=== PATIENT | male | born 1940 | race Caucasian/White ===

== ENCOUNTER 2019-12-15 17:10 | Inpatient (IN) | payer OTHER, MEDICARE ==
[~2019-12-15] VITALS: Ht 182.9 cm; Wt 81.6 kg
[~2019-12-15 17:10] MED LIST: ACIDOPHILUS CA1 EAC1 PO; ADULT LOW DOSE81 MG PO; AMPICILLIN SOD500 MG PO; ASA81BEC PO; ASPIRIN; ASPIRIN EC81 M1; ASPIRIN81 M2 PO; AZITHROMYCIN 2250 MG PO; BAYER CHEWABLE81 MG PO; BENEFIBER1 EAC1 PO; BENICAR20 MG PO; BENICAR40 MG; BENICAR40 MG PO; CALCIUM CITRAT250 MG PO; CALCIUM500 MG PO; CARAFATE 1 GM TA1 G1 PO; CARAFATE1 GM/10 ML PO; CEFDINIR300 MG PO; CIPRO500 MG/5 M PO; CITRATE OF MAG296 M1 PO; CLONIDINE0.1; COLACE 100 MG100 MG PO; COLACE100 MG PO; DEXILANT60 MG PO; DULCOLAX STOOL100 M1 PO; FAMOTIDINE PO; FLEET ENEMA133 ML; FOLIC ACID 40400 MC1 PO; IMDUR 30 MG TAB30 M1 PO; IRON325 PO; IRON55 MG PO; KEFLEX500 M1 PO; LOPRESSOR25 PO; LOVASTAT20 PO; LOVASTATIN 20 M20 MG PO; MILK OF MA400 MG/5 M PO; MIRALAX17 G1 PO; MIRALAX17 GM PO; NITRO-DUR1 EAC1 TRANSDERM; NITROGLYCERIN0.4 MG SL; NITROSTAT0.4 M1 SUBLING; NORCO 5-325 TA1 EACH PO; NORVASC 2.5 MG2.5 M1; NORVASC 5 MG TAB5 MG; NYSTATIN1 EAC6; PANTOPRAZOLE SO40 M1 PO; PLAVIX 75 MG TA75 M1 PO; PLAVIX 75 MG TA75 MG PO; PRAVACHOL; PRAVACHOL40 MG PO; PREDNISONE 10 M10 MG PO; PREDNISONE 20 M20 MG PO; PREVACID30 MG PO; PRILOSEC 20 MG20 MG PO; PRILOSEC OTC20 MG PO; PROPAFENONE 15150 MG PO; RITALIN10 MG; RITALIN10 MG PO; SUPER THERAVIT1 EACH PO; TOPROL XL25 MG PO; TOPROL XL50 MG PO; TYLENOL325 MG PO; VITAMIN B-12500 MCG PO; VITAMIN B12 1000MCG PO; VITAMIN C500 MG PO; ZOCOR40 MG PO
[2019-12-15 17:14] VITALS: BP 136/90
[2019-12-15 17:39] LABS: ABSOLUTE NEUTROPHILS 4.4 thou/uL (1.4-8.2); BASOPHILS 0.9 % (0.0-2.0); EOSINOPHILS 0.8 % (0.0-3.0); HEMATOCRIT 31.9 % (42.0-52.0); HEMOGLOBIN 10.8 gm/dL (14.0-18.0); LYMPHOCYTES 10.8 % (24.0-44.0); MCH 31.4 pg (26.0-34.0); MCHC 33.8 g/dL (28.0-37.0); MCV 93.1 fL (80.0-100.0); MONOCYTES 10.4 % (1.0-8.0); PLATELET COUNT 273 thou/uL (150-400); POLYS 77.1 % (36.0-66.0); RBC 3.43 mil/uL (4.50-6.00); RDW 14.3 % (10.5-14.5); WBC 5.7 thou/uL (4.0-11.0)
[2019-12-15 17:45] LABS: CALCIUM 8.7 mg/dL (8.5-10.1); CREATININE 0.7 mg/dL (0.7-1.3); POTASSIUM 3.6 mmol/L (3.5-5.1)
[2019-12-15] MEDS ORDERED: LOVASTATIN 20 M20 MG PO (18:26)
--- NOTE | 2019-12-15 18:32 | NUR ---
Per paperwork from [facility], "patient states that if his does not kill him, he will kill her. Pt reports increased anxiety and depression. Pt exhibits combative behaviors towards staff and is refusing cares"
[2019-12-15 19:31] VITALS: BP 136/86
--- NOTE | 2019-12-15 20:00 | NUR ---
REPORT GIVEN TO CCU NURSE. EKG DONE IN ER SENT WITH JEROME EMT DURING TRANSPORT TO FLOOR. BELONGINGS SENT WITH PATIENT.
[2019-12-15] MEDS ORDERED: COLACE100 MG PO (20:10)
[2019-12-15] MEDS ORDERED: NITROGLYCERIN0.4 MG SUBLING (20:14)
[2019-12-15] MEDS ORDERED: MIRALAX119 GM PO (20:15)
[2019-12-15 20:45] VITALS: BP 150/94
[2019-12-16 00:45] VITALS: BP 131/77
--- NOTE | 2019-12-16 03:00 | NUR ---
PT NEW ADMIT YESTERDAY FROM ER. ALERT AND ORIENTED. ST ON THE MONITOR. VSS. CONSENTS SIGNED. ORIENTED TO ROOM AND CALL LIGHT. PT HAS SOME REDNESS TO HIS BOTTOM, BRUISE TO HIS LLQ THAT HE STATE IT IS FROM SHOTS. ALL ADMISSION ASSESSMENTS COMPLETE AND DOCUMENTED. PT DENIES PAIN. PT ALSO REPORTS HE DOES NOT FEEL SAFE RETURNING HOME BECAUSE OF HIS AND WOULD PREFER HIS NOT TO BE UPDATE ABOUT HIS CONDITION. PT HAS ELEVATED TROPONIN, CARDIO CONSULTED BUT NO PAIN. HR REMAINED TACHY THROUGH THE NIGHT (100-116). NO FURTHER CONCERNS AT THIS TIME. WILL CONTINUE TO FOLLOW POC.
[2019-12-16 04:45] VITALS: BP 156/101
[2019-12-16 05:28] LABS: CALCIUM 8.3 mg/dL (8.5-10.1); CREATININE 0.7 mg/dL (0.7-1.3); POTASSIUM 3.1 mmol/L (3.5-5.1); TROPONIN-I 0.44 ng/mL (<0.06)
[2019-12-16 06:45] LABS: HEMATOCRIT 31.4 % (42.0-52.0); HEMOGLOBIN 10.6 gm/dL (14.0-18.0); MCH 31.8 pg (26.0-34.0); MCHC 33.8 g/dL (28.0-37.0); MCV 94.2 fL (80.0-100.0); RBC 3.33 mil/uL (4.50-6.00); RDW 14.7 % (10.5-14.5); WBC 7.5 thou/uL (4.0-11.0)
[2019-12-16 07:59] LABS: DIRECT BILIRUBIN 0.4 mg/dL (<0.1-0.2); TOTAL BILIRUBIN 0.7 mg/dL (<0.1-1.0); TOTAL PROTEIN 5.6 g/dL (6.4-8.2)
[2019-12-16 08:50] VITALS: BP 135/85
--- NOTE | 2019-12-16 11:12 | EKG ---
[facility] [place] [address] ELECTROCARDIOGRAM REPORT Name: RUBENS SANTA Room #: 350-P ADM IN M.R.#: [id number] Admission: 12/15/19 Attend Phys: Joshua Barrios MD Discharge: Date of : 36 Report #: [id number] THIS REPORT FOR: cc: Vinod Barton MD, David L. 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: [facility] : 1940 Requested By: Althea Marc Order Number: [id number] MD: Anibal Grant Measurements Intervals Summers Rate: 109 P: -11 MO: 150 QRS: 8 QRSD: 94 T: 198 QT: 314 QTc: 423 Interpretive Statements Sinus tachycardia with occasional premature ventricular complexes Repol abnrm suggests ischemia, lateral leads Baseline wander in lead(s) II,III,aVF Compared to ECG 10/30/2004 07:45:23 Premature ventricular complexes are no longer present Nonspecific ST segment abnormality is present Electronically Signed On 12-16-2019 11:11:13 CDT by Anibal Grant [email or web address] <ELECTRONICALLY SIGNED> By: Anibal Grant MD, [facility] 12/16/19 1111 1758 1758 Anibal Grant MD, [facility] /EPI
--- NOTE | 2019-12-16 11:16 | NUR ---
PT TRANSFERRED FRON 2-N TO 3 W ROOM 350 PT ALERT XS 4 STATES NO PAIN BUT IS TIRED. COVID 19 TEST DONE AND TAKEN TO LAB. UA TO BE OBTAINED. V.S TAKEN IN CHART, IV MED FROM ORDER TIME 0715 STARTED AT THIS TIME. WILL GIVE 08:00 AND 09:00 IV ABTS LATE BUT DR MAJOR AWARE PT WAS TRANSFERRED IV AND PO MEDS NOT GIVEN ON 2-N. TELE APPLIED AND STRIP IN CHART. PT IS PLEASANT AND COOPERATIVE WITH CARE.
[2019-12-16 11:23] VITALS: BP 128/60
--- NOTE | 2019-12-16 12:31 | NUR ---
PT IN ROOM EATING LUNCH. PT STATES NO PAIN OR RESP DISTRESS. DOES NOT WANT THIS FACILITY TO GIVE HIS CAR KEYS OR BILLFOLD TO HIS .
[2019-12-16 16:31] VITALS: BP 121/78
--- NOTE | 2019-12-16 17:37 | NUR ---
AT THIS TIME PT SITTING UP IN BED EATING DINNER AND WATCHING TV. PUT IN WOUND CARE CONSULT FOR RIGHT LE WOUND CARE / CONSULT. PT HAS KAREN LE'S WITH 1-2 EDEMA. FEET ELEVATED. PT STATES NO PAIN OR RESP DISTRESS AT THIS TIME.
[2019-12-16 19:58] VITALS: BP 106/70
--- NOTE | 2019-12-16 20:09 | NUR ---
UPON INITIAL ASSESSMENT PATIENT WAS AOX4. PATIENT WAS IN AN ANXIOUS STATE REGARDING A BUTTOCKS SORE THAT HAS NOT BEEN ADDRESSED. UPON ASSESSMENT THIS RN DISCOVERED A BLANCHABLE SORE AT THE SACRAL SITE. PT STATED THAT THIS SORE ORIGINATED PRIOR TO ADMISSION AT THIS HOSPITAL. THIS RN WILL WORK TO APPROPERIATELY ADDRESS THIS ISSUE. PT'S ABDOMAN WAS SOFT AND FLAT BUT PT STATED THAT IT FELT A BIT MORE BLOATED. PER PT, LAST BM WAS PASSED ON 12/13. PT'S LUNGS WERE DIMINISHED AT THE LOWER R LOBE AND HIS RADIAL PULSE WAS ALSO DIMINISHED SPECIFICALLY AT THE R WRIST. PT IS EDEMETOUS TO BLE, SCD'S ARE PLACE DON L LEG ONLY D/T AN OPEN ULCER ON THE R DAILEY. PT DOES COMPLAIN OF BUTTOCKS PX AT THIS TIME. WILL ADDRESS THIS WELL WITH MEDICATION. PATIENT IS RESPONSIVE, ABLE TO RECOLLECT HISTORY, ABLE TO FOLLOW COMMANDS, AND MAKE COMPLETE ARTICULATED SENTENCES. WILL CONTINUE TO MONITOR STATUS AND UPDATE NECESSARY.
[2019-12-17 05:34] LABS: HEMATOCRIT 29.3 % (42.0-52.0); HEMOGLOBIN 9.9 gm/dL (14.0-18.0); MCHC 33.8 g/dL (28.0-37.0); MCV 94.6 fL (80.0-100.0); RBC 3.1 mil/uL (4.50-6.00)
[2019-12-17 08:35] VITALS: BP 130/87
--- NOTE | 2019-12-17 12:02 | NUR ---
WOUND CONSULT; LIMITED ASSSESSMENT DUE TO COVID-19 POC, ASSESSED FROM PICTURES ONLY. THE WOUND TO THE LEFT HIP WAS PINK AND ABRASION-LIKE. THE GENERALIZED BUTTOCK AREAS; LOOK LIKE AN AREA OF S/S CONSISTANT WITH RESOLVING CONTACT DERMITIS AND NOT PRESSURE. THE RIGHT LE HAS S/S SUGGESTIVE OF PRESSURE LIKLEY MECHANICAL. ALL THE WOUND BEDS LOOK PALE PINK. RECOMMENDATIONS; 1-ZGUARD TO BUTTOCKS DAILY 2-A FOAM DRESSING TO THE LEFT HIP 3-PACK THE RLE WOUND WITH AQUACEL AG, COVER WITH A BOARDER FOAM, CHANGE M/W/F PRN DISCUSSED WITH ASHLEE
--- NOTE | 2019-12-17 15:03 | NUR ---
INITIAL ASSESSMENT: SW reviewed chart and spoke with nursing and attending physician. Pt in Enhanced Isolation to r/o COVID-19. Pt was at [facility], transferred to [facility] to the [facility] unit. Pt was evaluated in the ER and then admitted due to elevated troponin. Pt's COVID test is negative. Pt to transfer off of 3W. SW discussed with psych. Pt has been accepted to [facility] when medically stable. SW spoke with pt via phone. Introduced role of SW. Pt states that his has not been taking care of him and he wants her "to be investigated." Pt states that he would like to go to rehab and then back to his home. He does not want his involved in his care. Pt states that pt's nephew, Severiano Montalvo, is his contact. SW reviewed [facility] notes. Pt's is his DPOA. Pt has been to [facility] from 11/21-12/09. Pt's PCP is Dr. Vinod Barton in [place]. Pt with hx of Rachel in March of 2003. Pt has been in a w/c since that time. Pt states he has not used any HH. Pt has an open case with [facility]. Megan ([phone]) is the assigned caser shoe parts. SW spoke with Megan via phone to provide update. Megan states she has spoken with pt's family. Per Megan, pt has called the police on his . Family states that pt's takes care of him, as best as she cans, and if pt allows. Pt was unsafe to return home when [facility] ([place], [place]) was ready to discharge pt. Pt refused therapy at the facility due to being fixated on his bowel function. Pt's is involved in his care, but is unable to provide hands on care. [facility] has discussed exterminator termite care placement and process for Medicaid application. Plan is for pt to d/c to [facility] when medically stable. BERNY is following to assist as needed with discharge planning.
[2019-12-17] MEDS ORDERED: TYLENOL325 MG PO (16:10)
[2019-12-17] MEDS ORDERED: CARVEDILOL3.125 MG PO (16:10)
[2019-12-17 16:16] LABS: URINE BLOOD NEGATIVE (Negative); URINE CLARITY CLEAR; URINE COLOR YELLOW; URINE GLUCOSE-RANDOM* NEGATIVE (Negative); URINE KETONES NEGATIVE (Negative); URINE LEUKOCYTES NEGATIVE (Negative); URINE NITRITE NEGATIVE (Negative); URINE PROTEIN (DIPSTICK) NEGATIVE (Negative); URINE SPECIFIC GRAVITY >= 1.030 (1.005-1.035); URINE UROBILINOGEN 0.2 E.U./dl (0.2-1.0)
[2019-12-17 16:19] LABS: ICTOTEST (BILI CONFIRMATORY) Negative (Negative); URINE BILIRUBIN NEGATIVE (Negative)
[2019-12-17 16:26] VITALS: BP 123/78
--- NOTE | 2019-12-17 17:17 | NUR ---
PATIENT A/O X4. COVID NEGATIVE. D TO 518B NOW.
--- NOTE | 2019-12-18 07:42 | NUR ---
ORDERS FOR EVAL AND TREAT RECIEVED ON ACUTE BUT WAS PLACED ON HOLD PENDING COVID-19 RESULTS WHICH WERE NEGATIVE AND Pt HAS NOW TRANSFERRED TO [facility]
== END 2019-12-17 17:19 | DRG 947 ==
LOC: ER 17:10 → 3W 18:52 → EROBS 18:52 → SICU 20:30 → 2N 20:54 → 3W 12-16 10:22 → SBH 12-17 17:01 → 3W 12-17 17:18
PROVIDERS: Nurse Practitioner Family; ADMIT Hospitalist
DX: R79.89 Other specified abnormal findings of blood chemistry (principal); E43 Unspecified severe protein-calorie malnutrition; G61.0 Guillain-Barre syndrome; G82.20 Paraplegia, unspecified; F23 Brief psychotic disorder; R00.0 Tachycardia, unspecified; K59.00 Constipation, unspecified; Z20.818 Contact with and (suspected) exposure to other bacterial communicable diseases; I10 Essential (primary) hypertension; K21.9 Gastro-esophageal reflux disease without esophagitis; G47.419 Narcolepsy without cataplexy; G62.9 Polyneuropathy, unspecified; M35.3 Polymyalgia rheumatica; F32.9 Major depressive disorder, single episode, unspecified; Z79.82 Long term (current) use of aspirin; Z95.5 Presence of coronary angioplasty implant and graft; Z79.899 Other long term (current) drug therapy; Z88.8 Allergy status to other drugs, medicaments and biological substances
CPT/HCPCS: 10081; 10879

== ENCOUNTER 2019-12-17 17:39 | Inpatient (IN) | payer OTHER, MEDICARE ==
[~2019-12-17] VITALS: Ht 167.6 cm; Wt 71.1 kg
[~2019-12-17 17:39] MED LIST changes: +CARVEDILOL3.125 MG PO; +MIRALAX119 GM PO; +NITROGLYCERIN0.4 MG SUBLING
--- NOTE | 2019-12-17 18:24 | NUR ---
PT ARRIVED FROM 3RD FLOOR. PT STATED HE WAS AT [facility], THEN TIA [facility] IN INDEPENDANCE BACK TO [facility] AND THEN HERE. PT STATED THAT HE FELL AT HOME AND HIS JYOTI LEFT HIM ALONE AND HE CALLED HIS STEP-DAUGHTER DOMINGO CAME OVER AND SAFED HIS LIFE. ASKED PT HOW LONG HE WAS LAYING ON THE FLOOR, HE STATED FOR AWHILE. PT WAS UPSET ABOUT THE STAFF TAKING HIS PHONE. HE SAID JUST TRY TO TAKE MY PHONE AND YOU WILL HAVE TO PRY IT OUT OF HIS HANDS. PT ALSO STATED THAT HE IS UNABLE TO GET OUT OF THE BED UNLESS HE HAD HELP AND HE WASN'T WELL ENOUGH TO GET UP. PT STATED HE HAD THE FLU SHOT AT ONE TIME AND HE ENDED UP ON A GERNY AND NEVER WAS ABLE TO WALK AGAIN. PT STATED THE DID A SPINAL TAP AND HE HAD PROTIEN IN THE SPINAL FLUID AND DIAGNOSED WITH GILLIUM-BARRE. 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 HE DENIES BEING DEPRESSED OR SI. PT STATED HE JUST WANTS HIS KICKED OUT AND HIRE A SECURITY PERSON TO WATCH HIS HOUSE, PT UNDERSTANDS THAT THIS IS NOT GOING TO HAPPEN. PT ALSO HAS WOUNDS TO COCCYX AND RT LEG. PT STATED HE WOULD LIKE HIS NEPHEW BILL TO BE HIS DPOA AND HE STATED HE WOULD LEAVE EVERYTHING TO HIM. HE DID SAY HIS SON A YEAR AGO. PT HAS A DAUGHTER THAT HE IS ESTRANGED FROM AND DIDN'T KNOW WHY. 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 PT STATED HE IS ALSO FILLED UP, MEANING CONSTIPATED AND HE HASN'T HAD BM FOR 2 DAYS. PT STATED YOU CAN BRING A HORSE TO WATER, BUT CAN'T MAKE HIM DRINK. PT HAS WATER AT BEDSIDE DRINKING WITHOUT ANY ISSUES. PT HAS A LEATHER LAP MEENAKSHI THAT HAS PERSONAL INFO IN IT. PT ALLOWED THIS PROBATION OFFICER TO TAKE HIS CELL PHONE. PT PICKED OUT A FEW NAMES HE WANTED AND THIS PROBATION OFFICER ASSISTED PT BY WRITING DOWN THE NAMES AND NUMBERS ON THE PAPER.
[2019-12-17 18:34] VITALS: BP 123/85
[2019-12-17 19:50] VITALS: BP 123/85
--- NOTE | 2019-12-18 01:01 | NUR ---
Assumed care on 12/17/19 @ 1900. In bed, eyes open, responded to voiced greeting with pleasant affect. noted to be holding a tube of incontinent cream, and asked to have it applied. Incontinent of bladder, cream applied and voiced that he was pleased to have it. denies SI, HI, AH, VH. Denies that he ever said or intended to hurt his . A&O x 3. Cooperated with assessment and compliant with medication. Asked to have the light left on, even at bedtime, stated that he would sleep with the light on in case he woke up and wanted to read a magazine. Bed in low position, 3 rails up, bed alarm set, will continue to monitor q 12 for patient safety.
[2019-12-18 07:46] VITALS: BP 165/82
--- NOTE | 2019-12-18 10:40 | NUR ---
BERNY reviewed pt's chart and saw that there is DHSS involvment. BERNY contacted pt's DHSS worker Megan at [phone] who gave a background hx on pt and that fact that he is very paranoid about his . However, all of his statements have been unfounded. Megan said pt went to rehab and refused services. It is her recommendation that pt has placement because he refuses to go home with his , but is unsafe for him to live alone. BERNY contacted pt's Keyana Cooper at [phone]. She is concerned about payment for pt's stay in LTC should that be the choice. BERNY discussed getting [employer] involved to apply for Medicaid. Keyana agreed. She also asked about obtaining pt's info to pay an ambulance bill he accrued a week ago. BERNY advised that wait until pt is discharged because of the process of having to get security involved. She agreed.
--- NOTE | 2019-12-18 11:20 | NUR ---
WOUND CONSULT; A WOUND WAS IDENTIFIED TO THE RIGHT LEG. THE WOUND IS LIKLEY A MECHANICAL PRESSURE ETIOLOGY WHICH MEASURES 2.2 X 1.0 X 0.9. THE PATIENT HAS HEALED AREAS TO THE BUTTOCKS AND LEFT HIP. RECOMMENDATIONS; 1-AQUACEL AG TO RIGHT LE, COVER WITH A BORDER FOAM, SECUR WITH A TUBIGIP. 2-ZGUARD TO BUTTOCKS AND LEFT HIP. RN PRESENT
--- NOTE | 2019-12-18 12:32 | NUR ---
Lying supine in bed. Alert and orientated X3. States he does not know why he is on psych unit. Resistant to getting out of bed and participating in groups. Also has multiple problems with wheelchair and unit. Denies SI/HI. Breath sounds clear. Reg HR auscultated. Color pale pink with brisk capillary refill and palpable peripheral pulses. +2-+3 edema in lower extremities, L>R. Yellow urine per urinal. States he feels constipated/impacted and that it has been several days since he has had a BM. Active bowel sounds over soft, rounded abdomen. Reddened area to buttocks, cleaned and Zpaste applied. Drsg to lower extremity dry and intact. Paper tape/cotton ball removed from R antecubital space, skin tear approximately 1 cm, barrier drsg applied. Demanding to talk to psychiatrist. Refusing to get out of bed after being placed in bed for wound consult. called for update. States we can tell her that he is here, but no additional information. Dr. Pedro talked with pt. briefly, Dr. Conley states she will talk to later. called and informed of above. 1230 In bed eating lunch without s/o distress. States he will get up for dinner now that we have smaller WC with cushion.
[2019-12-18 19:20] VITALS: BP 86/56
[2019-12-18 20:01] VITALS: BP 86/56
--- NOTE | 2019-12-19 03:50 | NUR ---
Care transfered 12-18-19 at 1915; 1919 pt sittin in w/c assisted pt into bed per pt request with offgoing RN, position pt comfortable in bed. PT AAoX3, skin w/d. Upon auscultation Lungs clear RR even and non-labored on RA; HT S1/S2 RR; ABD soft, rounded, active WNL. Radial pulse equal and strong, pedal pulse right strong, left weak. +2-+3 pitting edema LE L>R. Rt AC dressing clean dry and intact; RLE dressing clean, dry and intact. Pt denies any pain and SI/HI/AVH. Pt denies any further concerns. 2032 Pt sitting in bed with eyes open, HS snack provided, and medication admin. Pt refused colace r/t two large BM earlier today. Reposition pt in bed and lowered head of bed, placed bed in lowest position and alarm on with peralta and bedside table closed to pt. 2300, 0100, 0300 pt in supine position with eyes closed, RR even and non-labored on RA. Zero acute distress noted.
[2019-12-19 08:29] VITALS: BP 106/59
--- NOTE | 2019-12-19 14:13 | NUR ---
DYSPHORIC AND IRRITABLE ON INITAL APPROACH THIS AM-MULTIPLE COMPLAINTS REGARDING NO TV,NO CALL LIGHT,ETC "THEY THINK I'M CRAZY-I'M NOT GOING TO KILL MYSELF-YOU CAN'T SAY ANYTHING ANYMORE. TURNED EVERY 2 HOURS PER ORDER. DIARRHEA STOOL X2 THIS AM-RECTAL AREA/COCYX REDDENED AND EXCORIATED-BARRIED CREAM APPLIED PER WOUND CARE ORDERS AND PHOTO OBTAINED OF COCYX,WOUND TO RLE DRESSING CHANGED AND PHOTO OBTAINED PER ORDER-PT VERY UPSET WITH THIS INSISTING DRESSING HAD "JUST BEEN CHANGED-YOU ARE MAKING IT WORSE MESSING WITH IT SO MUCH-MY WOUND CARE TEAM ON THE OUTSIDE DOES IT EVERY 4 DAYS" DID RELUCTANTLY ALLOW DRESSING CHANGE TO BE COMPLETED. USING URINAL AND HAS NOT BEEN INCONTINET OF URINE. DOES REPORT MILD PAIN TO FEET BILAT. RATED A 2-3 ON 1-10 SCALE REFUSES OFFERS OF PRN PAIN MEDS "I DON'T WANT TO GET HOOKED ON THAT DOPE"
[2019-12-19 20:02] VITALS: BP 103/64
--- NOTE | 2019-12-20 01:31 | NUR ---
ASSUMED CARE ON 12/19/19 @ 1900, IN BED READING MAGAZINE AND A&OX3. POOR UNDERSTANDING OF WHY HE IS HOSPITALIZED ON [facility] UN[facility]. COOPERATED WITH ASSESSMENT, HRRR, LUNGS AUSCULTATED CTA, ABD ACTIVE BOWEL SOUNDS OVER A SOFT FLAT ABDOMEN. REFUSED CARAFATE AND HALDOL. REFUSED TO ALLOW LIGHTS TO BE TURNED OFF AT BEDTIME. WILL CONTINUE TO MONITOR Q 12 MINUTES FOR PATIENT SAFETY. BED IN LOW POSITION, BED ALARM SET.
[2019-12-20 04:07] VITALS: BP 103/64
[2019-12-20 09:00] VITALS: BP 106/63
--- NOTE | 2019-12-20 09:48 | NUR ---
BERNY conctacted pt's DHSS worker Megan and provided an update; she explained that Dr. Conley does not have enough grounds to activate pt's DPOA and that is was agreeable to go home with her. Megan asked about SNF and BERNY reviewed his latest PT eval which states pt is agreeable to go to a SNF after treatment on [facility] unit. BERNY told Megan she will set that up and then let her know when he D/C to a SNF. SW team will continue to follow pt during his stay on this unit.
--- NOTE | 2019-12-20 12:36 | NUR ---
The hot car charger was jacqueline Granda in his room. I entered the room to relay a message to her. Jesus Alberto asked how he could contact the patient advocate. i told him I was the patient advocate. He was inquiring about his cell phone and wallet. I informed him these items are locked up. I educated him that staff and patients are not allowed to use cell phones, as this interfers with treament therapies. He said "Even though I am [age], I still have rights." He was speaking in a normal tone, he had a pleasant affect. He did joke a bit during our conversation. I reassured him that his wallet was safe. He continued saying that he trusts his physician and wants us to communicate with his physician. I educated him that we would need a release of information to speak to his physician. He stated he has been tested and he does not have any memory problems. The hot car charger explained later today, Jesus Alberto will be tested by the neuropsych doctor and that will give us more information. I shared with Jesus Alberto that I will read his chart, consult with the hot car charger and she will get back with him.
--- NOTE | 2019-12-20 13:53 | NUR ---
REPOSITIONED 2 HOURS PER MD ORDER,WITH MUCH ENCOURAGEMENT DID GET UP IN CHAIR WITH ASSIST OF 2 STAFF. INCONTINENT OF LOOSE STOOL AND PERINIUM AND COCYX REMAIN REDDEND,EXCORIATED, BARRIER CREAM APPLIED WITH INCONTINENT CARE. USING URINAL BUT HAS HAD 1 EPISODE OF URINARY INCONTINENCE. DENIES SI/SH/HI. DYSPHORIC MOOD-UPSET AND ANGRY AFTER METING WITH SW STATING "THEY WANT ME TO GO TO A [facility] I DON'T NEED A [facility]-I WAS TAKING CARE OF MYSELF JUST FINE" PATRICIA DAVEY C/O PAIN. ENJOYED SHAVE AND WASHING SELF WITH ASSIST OF NURSING STAFF.
[2019-12-20 20:22] VITALS: BP 107/67
--- NOTE | 2019-12-21 04:44 | NUR ---
Assumed care of pt @ 1900. Pt calm et cooperative this shift. Took medications whole without difficulty. Stool softener held due to reports of loose stools on previous shift. Isolated in room most of shift. Dayshift reported that pt had gotten up in w/c for a few hours today but spends quite a bit of time in bed. Heel protector placed on pt's left foot @ beginning of shift et pt repositioned every 2 hours for prevention of decubitus ulcers. VSWNL. Health assessment with no abnormalities noted other than previously reported. Denies SI/HI @ present time. Currently resting in bed with eyes closed. Pt prefers that the light be left on in his room while sleeping. Will continue to monitor per protocol.
[2019-12-21 07:59] VITALS: BP 116/51
[2019-12-21 09:19] VITALS: BP 116/51
--- NOTE | 2019-12-21 09:32 | NUR ---
BERNY contacted [facility] rehab unit and was told consult was received and they will see pt this morning. SW team will continue to follow pt during his stay on this unit.
--- NOTE | 2019-12-21 09:33 | NUR ---
ASSUMED CARE AT 0700 THIS MORNING. PT. WAS IN HIS ROOM IN BED. HE ATE IN HIS ROOM. TOOK HIS MEDS TO HIM. THE ENTIRE TIMES THIS PROBLEM MANAGER WAS IN THE ROOM, HE COMPLAINED ABOUT HOW NO ONE IS TELLING HIM WHAT HE NEEDS TO DO TO GO HOME AND WHY ARE THEY MESSING WITH HIS MEDICATIONS IN THE FIRST PLACE. HE STATES HIS NORMAL ROUTINE OF MEDICATIONS PRE ADMISSION IS ALL HE NEEDS. HE STATES HE DOES NOT RECALL TALKING TO DR. OWEN. HE TOOK HIS MORNING MEDICATIONS PRESCRIBED BY THE . LUNGS CTA DECREASED IN BASES, HR IRREG. HE HAD A SMALL BOWEL MOVEMENT THIS MORNING. HE WAS INFORMED HE NEEDS TO GET UP TODAY. HE STATED HE DOES NOT BELIEVE HE NEEDS TO BE UP NO MORE THAN ONE HOUR IT WEARS HIM "ASHLEY OUT".
[2019-12-21 13:05] LABS: HEMATOCRIT 27.8 % (42.0-52.0); HEMOGLOBIN 9.4 gm/dL (14.0-18.0); MCH 31.7 pg (26.0-34.0); MCHC 33.9 g/dL (28.0-37.0); MCV 93.6 fL (80.0-100.0); RBC 2.97 mil/uL (4.50-6.00); RDW 15.1 % (10.5-14.5); WBC 4.7 thou/uL (4.0-11.0)
--- NOTE | 2019-12-21 13:24 | NUR ---
PATIENT SEEN FOR REHAB CONSULT BY JARON MRECER NP WITH DR. CLAUDIO. PATIENT DOES NOT MEET CRITERIA FOR ACUTE REHAB STAY. SKILLED FACLITY RECOMMENDED FOR D/C LOCATION. BRENDA, GEOMORPHOLOGIST ON 5S, NOTIFIED. THANK YOU FOR THIS REFERRAL.
[2019-12-21 13:26] LABS: CALCIUM 7.8 mg/dL (8.5-10.1); CREATININE 0.8 mg/dL (0.7-1.3); MAGNESIUM 1.3 mg/dL (1.8-2.4); POTASSIUM 3.6 mmol/L (3.5-5.1)
[2019-12-21 19:29] VITALS: BP 102/66
[2019-12-21 19:45] VITALS: BP 102/66
--- NOTE | 2019-12-22 04:40 | NUR ---
12-20-18 Transferred care 1914; 1944 Pt sitting in bed with eyes open, skin w/d. PT AAOx2, upon auscultation all lung mclaughlin clear and diminished, RR even and non-labored on RA; HT S1 S2 RR; ABD active WNL, soft and rounded. Pt denies pain leah SI/HI. Approximately 12-21-20 0030 pt reported pain in hips bi-lat, pt rated pain 9 on 0-10 scale; 0035 mar reviewed and 650 mg Tylenol admin at 0035, approximately 0105 Pt rated pain at 3 on 0-10 scale. 0300 pt supine with resting with eyes closed. Zero Acute distress noted.
[2019-12-22 07:51] VITALS: BP 118/70
[2019-12-22 08:55] VITALS: BP 118/70
--- NOTE | 2019-12-22 08:55 | NUR ---
PT LYING IN BED THIS AM. PT DIDN'T WANT TO EAT BREAKFAST, EXCEPT FOR CRACKERS. PT STATED HE HASN'T HAD A BM FOR A FEW DAYS. PT STATED HE IS PASSING GAS. PT STATED HE DIDN'T VOID THIS AM DUE TO NOT HAVING A BM. PT HAS DRESSING TO RT ELBOW AND RT LEG. PT HAS SOME OLD WOUNDS AND REDDNESS TO COCCYX. PT LEFT LE IS FLACCID, PT HAS EDEMA TO LEFT PEDAL. PT ABLE TO MOVE RT LE. PT TOOK AM MEDS WITHOUT ANY ISSUES.
--- NOTE | 2019-12-22 09:09 | NUR ---
ADM MIRLAX 17GM IN WATER. PT STATED NO BM FOR A FEW DAYS. WAS CHARTED HE HAD BM 12/19, DIARRHEA.
--- NOTE | 2019-12-22 10:55 | NUR ---
DR. VEGA IS HERE TO SEE FOR NEUROCOG. FAUSTINA. HE WANTS PT TO GET UP AND GO TO OFFICE. PT STATED HE DIDN'T NEED THIS TEST. PT STATED HE IS HAVING BM IN BED. CLEANED UP PT MED SOFT BM. APPLIED LOTION TO LE AND PROTECTIVE CREAM TO BUTTOCKS. PT UP X2 TO W/C.
--- NOTE | 2019-12-22 16:00 | NUR ---
PT WANTED TO LAY DOWN AFTER HE HAD HIS MEETING WITH DR. LARKIN. HE STATED THAT IT WORE HIM OUT. PT WILL EAT DINNER IN HIS ROOM TONIGHT.
[2019-12-22 19:37] VITALS: BP 111/74
[2019-12-22 19:56] VITALS: BP 111/74
--- NOTE | 2019-12-23 05:01 | NUR ---
12-21-18 care transfered 1914; 1936 Pt sitting in bed, AAOx3 calm and smiling, pt communicated he is looking forward to PT and pt requested for me to put left side rale down and right he wanted to do a few pulls on that side; pt demonstrated several of his exerices he has been working at. I encourage with showing some simple isometric by pushing your hands together and holding for ten seconds to increase upper chest strange and butt clenches. Upon auscultation all lungs field clear, HT S1, S2, murmur noted, RR; ABD active WNL in all 4 quads; LE +1 edema noted in ankle area. Encouraged pt to elevated feet, pt complied for 30 minutes then we reposition. Pt denied any pain and SI/HI/VAH. Medication Admin 2042 pt had zero difficult swallowing medication. Approximately 2225 pt reported pain in shoulder bi-lat level 7 on 0-10 scale. 650mg Tylenol admin at 2233, 2318 pt reassessed and pt rated pain 3 on 0-10 scale. Reposition pt again lowering head of bed to comfortable position. Zero acute distress noted.
[2019-12-23 08:30] VITALS: BP 123/67
--- NOTE | 2019-12-23 08:35 | NUR ---
PT SITTING IN W/C THIS AM WITH ASSISTANCE X2 PERSONS. PT DID EAT BREAKFAST IN DINING ROOM. PT TOOK MEDS WITHOUT ANY ISSUES. PT DRESSING TO RLE INTACT. PT HAS EDEMA TO LLE PEDAL. PT HAS NO CONTROL OF LLE. PT DENIES ANY PAIN.
--- NOTE | 2019-12-23 09:27 | NUR ---
Date of Admission: 12/17/19 Date of Activity Therapy Assessment:12/19/2019 Activity Goal: 1:1, engagement in the milieu Initial Goal:Psychosis Weekly progress towards goal:Did not achieve Group participation level:N/A- COVID 19 Behaviors observed:Minimal engagement in 1:1 RT sessions. Stated he enjoys newspaper and word puzzles. Plan: No change towards goal
--- NOTE | 2019-12-23 18:00 | NUR ---
PT CLEANED UP AFTER SMALL SOFT BM. APPLIED ORANGE Z GUARD CREAM TO BUTTOCKS. PT RT HEEL IS RED, PT REFUSED PILLOW TODAY UNDER RT HEEL. PT STATED HE CAN MOVE HIS LEG BETTER. PT DIDN'T WANT TO GET UP IN W/C FOR DINNER. PT STATED HE IS GOING TO DISCHARGE TOMMORROW.
[2019-12-23 19:21] VITALS: BP 123/67
[2019-12-23 19:30] VITALS: BP 123/67
--- NOTE | 2019-12-24 06:48 | NUR ---
12-22 care transfered at 191; 1929 pt supine in bed with eyes open AAOx3, Pt denies SI/HI; 2135 medication admin and rated pain at 8 on 0-10 scale bi-lat shoulders. pt was calm and cooperative and reported being happing he is going to rehab. Please refer to interventions for more information. Zero acute distress.
[2019-12-24 08:35] VITALS: BP 132/83
[2019-12-24 08:50] VITALS: BP 132/83
--- NOTE | 2019-12-24 11:02 | NUR ---
WOUND CARE F/U SKIN TEAR R UPPER ARM ALMOST CLOSED, HEALING, WOUNDS R LOWER LEG X2 ALSO HEALING, PINK VIABLE TISSUE PRESENT, NO ODOR, NO S/S INFECTION IN ANY WOUNDS, PT COOPERATIVE, SEE PROCESS INTERVENTION FOR WOUND MEASUREMENTS, DETAILS RECOMMENDATION; CONT CURRENT POC, CHANGE 3X WEEK AND PRN COMPUTER ASSISTANT INFORMED
[2019-12-24] MEDS ORDERED: THIOTHIXENE2 MG PO (11:24)
[2019-12-24] MEDS ORDERED: METHYLIN 10 MG10 MG PO (11:24)
[2019-12-24] MEDS ORDERED: K-DUR10 MEQ PO (11:24)
[2019-12-24] MEDS ORDERED: MAG-AL PLUS SUS30 ML PO (11:25)
[2019-12-24] MEDS ORDERED: PREDNISONE 10 M10 MG PO (11:25)
[2019-12-24] MEDS ORDERED: MAGNESIUM400 MG PO (11:26)
--- NOTE | 2019-12-24 12:10 | NUR ---
BERNY faxed packet to [facility] [phone]. Left FAX confimraiton with packet on chart that will be scanned into EHR. ME packet was made and left on chart reported thsi to nursing. BERNY called and left a VM with admissions at [facility] to confirm this d/c. BERNY also provided nursing with phone number for report. Per email from BERNY transportation was set up by [facility] for a 1pm picking belt operator.
== END 2019-12-24 13:15 | DRG 881 ==
LOC: SBH 17:39
PROVIDERS: Hospitalist; ADMIT Psychiatry & Neurology Psychiatry
DX: F32.9 Major depressive disorder, single episode, unspecified (principal); F01.50 Vascular dementia, unspecified severity, without behavioral disturbance, psychotic disturbance, mood disturbance, and anxiety; E87.1 Hypo-osmolality and hyponatremia; G61.0 Guillain-Barre syndrome; G47.419 Narcolepsy without cataplexy; D53.9 Nutritional anemia, unspecified; E87.6 Hypokalemia; G89.29 Other chronic pain; E83.42 Hypomagnesemia; I10 Essential (primary) hypertension; K21.9 Gastro-esophageal reflux disease without esophagitis; G62.9 Polyneuropathy, unspecified; M25.519 Pain in unspecified shoulder; E78.5 Hyperlipidemia, unspecified; F41.9 Anxiety disorder, unspecified; Z88.8 Allergy status to other drugs, medicaments and biological substances; Z88.5 Allergy status to narcotic agent; Z88.7 Allergy status to serum and vaccine; Z85.46 Personal history of malignant neoplasm of prostate; G47.429 Narcolepsy in conditions classified elsewhere without cataplexy
CPT/HCPCS: 10880